=== PATIENT | female | born 1955 | race African-American/Black ===

== ENCOUNTER 2018-11-10 05:19 | Inpatient (IN) ==
--- NOTE | 2018-11-07 08:42 | EKG Report ---
Test Performed on : 11/07/2018 08:29:19 AM Test Reason : PAT Blood Pressure : / mmHG Vent. Rate : 052 BPM Atrial Rate : 052 BPM P-R Int : 156 ms QRS Dur : 088 ms QT Int : 416 ms P-R-T Axes : -01 015 033 degrees QTc Int : 386 ms Sinus bradycardia. Otherwise normal ECG No previous ECGs available Confirmed by Lebron IZQUIERDO, Cash Silver ([id number]) on 11/09/2018 8:19:44 AM
[2018-11-08 09:16] LABS: BASO# 0.02 X1000 (0.0-0.2); BASO% 0.4 % (0.0-0.8); EOS% 5.4 % (0.0-10.0); HEMATOCRIT 33.2 % (37.0-47.0); HEMOGLOBIN 10.2 g/dL (12.0-16.0); IMM GRAN# 0.02 X1000 (0.0-0.04); IMM GRAN% 0.4 % (0.0-0.5); LYMPH# 1.22 X1000 (1.2-3.4); LYMPH% 22.1 % (20.5-51.1); MCH 22.4 PG (27-31); MCHC 30.7 g/dL (33-37); MONO# 0.44 X1000 (0.11-0.59); MPV 9.7 FL (7.4-10.4); NEUT# 3.52 X1000 (1.4-6.5); NEUT% 63.7 % (42.2-75.2); PLT 355 X1000 (130-400); RBC 4.55 XMIL (4.2-5.4); RDW 16.5 % (11.5-14.5); WBC 5.52 X1000 (4.8-10.8)
[2018-11-10] MEDS ORDERED: INVANZ 1 GM/NS 1 GM/50 ML IVPB ONE (05:49)
[2018-11-10] MEDS ORDERED: REGLAN ONE (05:49)
[2018-11-10] MEDS ORDERED: LR 1,000 ML ONE ×3 (05:49→12:14)
[2018-11-10] MEDS ORDERED: ENTEREG ONE (05:49)
[2018-11-10] MEDS ORDERED: PEPCID ONE (05:49)
[2018-11-10] MEDS ORDERED: DIPRIVAN 1% ONE (06:17)
[2018-11-10] MEDS ORDERED: FENTANYL ONE (06:18)
[2018-11-10] MEDS ORDERED: NORCURON ONE (06:22)
[2018-11-10] MEDS ORDERED: XYLOCAINE-MPF 2% ONE (06:22)
[2018-11-10] MEDS ORDERED: QUELICIN (DOSE) ONE (06:22)
[2018-11-10] MEDS ORDERED: SODIUM CHLORIDE 0.9% 10 ML ONE ×2 (06:22→07:02)
[2018-11-10] MEDS ORDERED: SENSORCAINE-MPF 0.5%/EPI 1:200,000 ONE (06:27)
[2018-11-10] MEDS ORDERED: MARCAINE 0.25% ONE (07:01)
[2018-11-10] MEDS ORDERED: EXPAREL 1.3% ONE (07:02)
[2018-11-10] MEDS ORDERED: DECADRON ONE (07:33)
[2018-11-10] MEDS ORDERED: ZOFRAN ONE (07:33)
[2018-11-10 08:20] LABS: URINE SOURCE CATH
[2018-11-10] MEDS ORDERED: EPHEDRINE ONE (08:28)
[2018-11-10 08:42] LABS: BILIRUBIN URINE NEGATIVE (NEGATIVE); BLOOD URINE NEGATIVE (NEGATIVE); COLOR YELLOW; GLUCOSE URINE NEGATIVE (NEGATIVE); KETONE URINE NEGATIVE (NEGATIVE); LEUKOCYTES URINE NEGATIVE (NEGATIVE); NITRITE URINE NEGATIVE (NEGATIVE); PH URINE 5.5; PROTEIN URINE NEGATIVE (NEGATIVE); TURBIDITY URINE CLEAR (CLEAR); UROBILINOGEN URINE NORMAL (NORMAL)
[2018-11-10 08:44] LABS: UR EPITHELIAL CELLS <10 /HPF (<10); URINE BACTERIA NEGATIVE /HPF; URINE RBC <10 /HPF (<10); URINE WBC <10 /HPF (<10)
[2018-11-10] MEDS ORDERED: OFIRMEV 1000 MG/ISOTONIC SOLN 1,000 MG/100 ML BOTTLE ONE (09:08)
[2018-11-10] MEDS ORDERED: ROBINUL ONE (09:34)
[2018-11-10] MEDS ORDERED: NEOSTIGMINE ONE (09:35)
[2018-11-10] MEDS: DILAUDID ONE ×2 (12:05→12:09)
[2018-11-10] MEDS ORDERED: ZOFRAN IV PRN (12:33)
[2018-11-10] MEDS: LR 1,000 ML IV SCH ×2 (14:49→22:28)
[2018-11-10] MEDS: OFIRMEV 1000 MG/ISOTONIC SOLN 1,000 MG/100 ML BOTTLE IV SCH ×2 (16:28→22:27)
--- NOTE | 2018-11-10 19:10 | OPERATIVE NOTE ---
PROCEDURE DATE: 11/10/2018 PREOPERATIVE DIAGNOSIS: Right colon cancer. POSTOPERATIVE DIAGNOSIS: Right colon cancer. PROCEDURE PERFORMED: Robotic-assisted laparoscopic right colectomy. ESTIMATED BLOOD LOSS: 50 mL. SPECIMENS: Right colon. ANESTHESIA: General with a TAP block. INDICATIONS FOR PROCEDURE: A 63-year-old female who had some bleeding and anemia and a colonoscopy showed right colon mass. CT scan showed a large tumor, but no evidence of metastatic disease. OPERATIVE FINDINGS: There was a large tattooed lesion in the ascending colon. No evidence of peritoneal metastatic disease. No obvious enlarged lymphadenopathy. OPERATIVE NOTE: Risks, benefits, and alternatives were discussed with the patient. She consented to the procedure, seen preoperatively, surgical site was confirmed. She was taken to the operating room and placed in the supine position. General anesthesia was induced. Dennison catheter was placed. A TAP block was performed by anesthesia. For details, please see their dictated record. Her abdomen is prepped with chlorhexidine solution and draped in the usual sterile fashion. After a time out, we placed our camera port approximately 25 cm from the target anatomy off the midline just superior and left lateral to the umbilicus. We carried this down through the anterior muscle fascia, divided the muscle and entered the abdomen in a controlled fashion and placed our trocar. We then placed an 8 mm robotic trocar approximately 2 cm off the midline in the epigastric location. Splitting the difference between these two laterally, we placed a 12 mm stapler trocar, robotic. An accessory port was placed in the left lower quadrant 5 mm and an 8 mm robotic trocar was placed in the suprapubic midline. After gaining access to the abdomen, we ensured there was no injury to underlying structures, placed her in some flexed position, left side down, as well as some slight reverse Trendelenburg, and ensured that the small bowel was off of our anticipated pedicle. We had good exposure. We elevated the terminal ileum, identifying the pedicle, the ileocolic pedicle, and circumferentially dissected this, protecting the duodenum, which was easily visualized. At the level of the duodenum, we divided the pedicle and then continued our medial to lateral dissection. There was some lateral adhesions we had to take down from her previous appendectomy. We completed our medial lateral dissection, divided the small bowel mesentery. At this point, we did protect all the retroperitoneal structures. The tumor was large, and it was adherent to Gerota's fascia, but we were able to separate this without injury to any retroperitoneal structures. Firefly of fluorescence was used to ensure perfusion of the distal small bowel, and we divided this with a 45 mm blue load stapler using the robot. A Ludwig was placed around the transverse colon at our area of planned distal transection, which was greater than 7 cm distal to the tattooed area and the palpable tumor, and using 2 fires we divided the transverse colon. At this point, an isoperistaltic [id number] functional end-to-end anastomosis was performed using a fire of the 45 mm blue load stapler and then closing the common enterotomy with a running 3-0 V-Loc absorbable suture. We did imbricate it with the same V-Loc. There was no tension. Hemostasis was noted. We had good perfusion based off the firefly over proximal distal and pulsatile bleeding noted at each into the specimen, but hemostasis was noted at the end of the case. At this point, we brought the specimen out through our extraction site which was a camera. After placing the Gucci wound protector, we did have to extend this and brought this out intact. The fascia was closed with a number 1 PDS suture. The other trocars were closed with interrupted 0 Vicryl sutures. Skin was closed with 4-0 Monocryl. Dermabond was applied. Counts correct. She has awoken and transferred to recovery. I spoke to the family. cc: Chapo Celaya MD
[2018-11-10] MEDS: PERIDEX MT SCH (22:27)
[2018-11-11] MEDS: OFIRMEV 1000 MG/ISOTONIC SOLN 1,000 MG/100 ML BOTTLE IV SCH ×2 (05:17→09:44)
[2018-11-11] MEDS: PRILOSEC PO SCH (05:17)
[2018-11-11 06:38] LABS: BASO# 0.02 X1000 (0.0-0.2); BASO% 0.2 % (0.0-0.8); EOS# 0.02 X1000 (0.0-0.7); EOS% 0.2 % (0.0-10.0); HEMATOCRIT 29.5 % (37.0-47.0); HEMOGLOBIN 8.9 g/dL (12.0-16.0); LYMPH# 1.34 X1000 (1.2-3.4); LYMPH% 13.2 % (20.5-51.1); MCH 22.4 PG (27-31); MCHC 30.2 g/dL (33-37); MCV 74.3 FL (81-99); MONO# 0.88 X1000 (0.11-0.59); MONO% 8.7 % (1.7-9.3); MPV 9.8 FL (7.4-10.4); NEUT# 7.89 X1000 (1.4-6.5); NEUT% 77.7 % (42.2-75.2); PLT 311 X1000 (130-400); RBC 3.97 XMIL (4.2-5.4); RDW 16.3 % (11.5-14.5); WBC 10.15 X1000 (4.8-10.8)
[2018-11-11 07:08] LABS: AGAP 8; BUN 6 mg/dL (8-22); CALCIUM 8.9 mg/dL (8.8-10.2); CHLORIDE 105 mmol/L (98-107); COSMO 283; CREATININE 0.8 mg/dL (0.5-0.9); ESTIMATED GFR > 60; GLUCOSE 99 mg/dL (70-104); POTASSIUM 4.2 mmol/L (3.5-5.1); SODIUM 143 mmol/L (136-145); TCO2 30 mmol/L (25-35)
[2018-11-11] MEDS: PERIDEX MT SCH (09:44)
[2018-11-11] MEDS ORDERED: MAG-OX PO ONE (15:20)
[2018-11-11] MEDS ORDERED: LOVENOX SUBQ SCH (16:00)
--- NOTE | 2018-11-11 16:16 | GENERAL SURGERY PROGRESS NOTE ---
DATE: 11/11/2018 SUBJECTIVE: She feels very well. Minimal pain. She is voiding after Dennison is out. No fevers. No tachycardia. Incisions are all intact. Abdomen is soft. I reviewed her labs. Hematocrit is 29. White count is 10. Creatinine 0.8. ASSESSMENT AND PLAN: A 63-year-old female status post robot-assisted right colectomy. She is doing well. Will advance her per the ERAS pathway. She has Lovenox, PPI, Entereg. Hopefully will go home in the next 24 hours. cc: Chapo Celaya MD
[2018-11-12] MEDS: PERIDEX MT SCH ×2 (00:22→09:21)
[2018-11-12] MEDS: ULTRAM PO PRN ×2 (00:23→12:45)
[2018-11-12] MEDS: PRILOSEC PO SCH ×4 (06:43→07:23)
--- NOTE | 2018-11-12 07:04 | GENERAL SURGERY PROGRESS NOTE ---
DATE: 11/12/2018 SUBJECTIVE: The patient seems to be doing okay. She is tolerating her diet. She is having bowel movements. She is passing gas. OBJECTIVE: Vital Signs: The patient is currently afebrile. Her vital signs are stable. General: No acute distress. Cardiovascular: Regular rate and rhythm. Lungs: Grossly clear. Abdomen: Soft. Appropriately tender. Bowel sounds auscultated. ASSESSMENT AND PLAN: A 63-year-old female, currently postoperative day #2 from robotic assisted colectomy. The patient seems to be clinically doing well. We will see how she does at lunch and potentially discharge her today. cc: MD Chapo Melgoza MD
[2018-11-12] MEDS ORDERED: VITAMIN D PO SCH (09:00)
[2018-11-12] MEDS ORDERED: VITAMIN C PO SCH (09:00)
[2018-11-12] MEDS ORDERED: COZAAR PO SCH (09:00)
[2018-11-12] MEDS ORDERED: FERROUS SULFATE PO SCH (09:00)
== END 2018-11-12 13:06 | disposition home or self-care (01) | DRG 330 ==
LOC: SURHOLD 05:19 → 4N 08:27
PROVIDERS: ADMIT Surgery; ATTEND Surgery
CPT/HCPCS: 80048; 81001; 85025; 86850; 86900; 86901; 86920; 88309; 88313; 93005; 93010; 94799; 97161; A9270; C9290; J0131; J0330; J1100; J1170; J1335; J1650; J2405; J3010; J7120; S0020; S2900